=== PATIENT | male | born 1950 | race Caucasian/White ===

== ENCOUNTER 2017-03-18 01:37 | Observation (INO) | payer OTHER ==
[~2017-03-18] VITALS: Ht 175.3 cm; Wt 97.2 kg
[~2017-03-18 01:37] MED LIST: ASPIR 8181 M1 PO; ASPIR-LOW81 MG PO; DAILY VALUE1 EACH PO; KEFLEX500 MG PO; PRINIVIL10 MG PO
[2017-03-18 01:54] LABS: HEMATOCRIT 42.4 % (38.0-50.0); MCH 30.4 PG (29.0-34.0); MCHC 35.6 G/DL (30.0-36.0); MCV 85.5 FL (86-99); MEAN PLAT.VOLUME 10.9 uM^3 (9.0-12.4); PLATELET COUNT 247 K/uL (156-360); RBC DIS.WIDTH-CV 11.9 % (11.8-14.6); RBC DIS.WIDTH-SD 36.5 % (39-53); RED BLOOD COUNT 4.96 M/uL (4.00-5.50); WHITE BLOOD COUNT 6.9 K/uL (4.1-10.2)
[2017-03-18 02:09] LABS: CHLORIDE 104 mEq/L (99-109); POTASSIUM 3.9 mEq/L (3.7-5.4); SODIUM 134 mEq/L (136-147)
[2017-03-18 02:11] LABS: GLUCOSE 145 mg/dL (70-99)
[2017-03-18 02:12] LABS: ANION GAP 14 MEQ/L (2-14)
[2017-03-18 02:13] LABS: TOTAL BILIRUBIN 1.2 mg/dL (0.0-1.0)
[2017-03-18 02:14] LABS: ALKALINE PHOSPHATASE 66 IU/L (3-129)
[2017-03-18 02:15] LABS: GFR ESTIMATE (CALCULATED) > 59 mL/min/
[2017-03-18 02:16] LABS: UREA NITROGEN (BUN) 14 mg/dL (9-23)
[2017-03-18 02:47] LABS: TROP-I INTERPRETATION NEGATIVE; TROPONIN-I < 0.01 ng/mL (0.0-0.30)
[2017-03-18 07:55] LABS: ADD MIUA? YES; BILIRUBIN NEGATIVE; BLOOD NEGATIVE; COLOR YELLOW ((YELLOW)); GLUCOSE (STRIP) NEGATIVE; KETONES 20; LEUKOCYTES NEGATIVE; NITRITE NEGATIVE; PROTEIN (STRIP) 30; SPECIFIC GRAVITY 1.023 (1.000-1.030); UROBILINOGEN 0.2 MG/DL (0.2-1.0)
[2017-03-18 08:19] LABS: BACTERIA 1+ /HPF; CASTS NONE SEEN /LPF; CRYSTALS NONE SEEN; EPITHELIAL CELLS RARE /HPF; MUCUS RARE /LPF; RED BLOOD CELLS 0-5 /HPF (0-5); UCUL ADDED? NO; WHITE BLOOD CELLS RARE /HPF (0-5)
[2017-03-18 08:30] VITALS: BP 142/83; BP 149/75
[2017-03-18] MEDS ORDERED: PRINIVIL20 MG PO (10:14)
[2017-03-18 12:56] VITALS: BP 169/82
[2017-03-18 14:36] LABS: TROP-I INTERPRETATION NEGATIVE; TROPONIN-I < 0.01 ng/mL (0.0-0.30)
[2017-03-18 17:05] VITALS: BP 147/86
[2017-03-18 19:30] LABS: TROP-I INTERPRETATION NEGATIVE; TROPONIN-I 0.01 ng/mL (0.0-0.30)
[2017-03-18 20:00] VITALS: BP 144/76
[2017-03-19 00:40] VITALS: BP 129/78
[2017-03-19 04:45] VITALS: BP 124/76
[2017-03-19 06:15] LABS: ANION GAP 8 MEQ/L (2-14); CHLORIDE 106 MEQ/L (99-109); GFR ESTIMATE (CALCULATED) > 59 mL/min/; POTASSIUM 3.8 MEQ/L (3.7-5.4); SAMPLE HEMOLYSIS CHECK 0; SAMPLE ICTERIC CHECK 0; SAMPLE LIPEMIA CHECK 0; SODIUM 137 MEQ/L (136-147); UREA NITROGEN (BUN) 13 mg/dL (9-23)
[2017-03-19 06:39] LABS: GLUCOSE 92 mg/dL (70-99)
[2017-03-19 08:28] VITALS: BP 120/75
[2017-03-19 11:49] VITALS: BP 137/86
[2017-03-19] MEDS ORDERED: ANTIVERT25 MG PO (13:21)
[2017-03-19] MEDS ORDERED: AMOX TR-K CLV1 EAC4 PO (13:21)
[2017-03-19 15:51] VITALS: BP 124/81
== END 2017-03-19 16:17 | disposition home or self-care (01) ==
LOC: EME 01:37 → EDOF 07:34 → 5WEST 07:34 → EDOF 07:34 → 5WEST 08:16
PROVIDERS: Emergency Medicine; Internal Medicine
DX: R42 Dizziness and giddiness (principal); H93.11 Tinnitus, right ear; R55 Syncope and collapse; I10 Essential (primary) hypertension; I35.0 Nonrheumatic aortic (valve) stenosis
CPT/HCPCS: 70450; 70551; 80048; 80053; 81003; 84443; 84484; 85027; 85651; 93005; 93306; 93880; 99281; 99285; G0378; G8978 GP CH; G8979 GP CH; G8980 GP CH; J1650; J2405; J7030; S0028